=== PATIENT | female | born 1965 | race Caucasian/White ===

== ENCOUNTER 2018-05-14 07:30 | Emergency (ER) | payer OTHER ==
[~2018-05-14] VITALS: Wt 75.7 kg
[~2018-05-14 07:30] MED LIST: GLIM4TAB PO; HYDR-3504 PO; IBUP800T48 PO; ISON300T18 PO; LANT3I SC; MECL12.5 PO; OMEP20CA16 PO; RANI300T PO; SITA1TBM7 PO
[2018-05-14 07:33] VITALS: BP 137/70; PULSE 104; RESP 17
[2018-05-14] MEDS ORDERED: NPH10OT RIGHT EAR (07:49)
--- NOTE | 2018-05-14 08:03 | ERD ---
ER Documentation Chief Complaint Chief Complaint FACIAL PAIN, EAR PAIN, HEADACHE HPI 52-year-old female presents the emergency department complaining of facial pain and swelling. Over the last week, patient thought that she had a problem with her tooth. She had pain on the right side of her face that radiated to her right ear. She was evaluated by her doctor and started on Keflex. Despite the use of the Keflex, she continues to have pain in the right ear and the right side of her face. She denies any fevers or chills. She denies any discharge or drainage from the ear. She reports no difficulty hearing. She reports that the pain from her ear occasionally radiates to her head but she has no other specific headache. Concurrent with all these issues, she states that her blood sugars have been over 300 and difficult to control. She has a cough but no sputum production. She reports no shortness of breath. ROS All systems reviewed and are negative except as per history of present illness. Medications Home Meds Active Scripts Neomycin/Polymyxin/Hydrocort* (Cortisporin* Otic) 10 Ml Susp, 4 DROP RIGHT EAR QID for 7 Days, EA Prov:BELKIS BARRETO 05/14/18 Meclizine Hcl* (Meclizine Hcl*) 12.5 Mg Tablet, 12.5 MG PO Q8H PRN for DIZZINESS, #30 TAB Prov:PREET RODAS MD 08/08/15 Reported Medications Hydrocodone Bit-Acetaminophen (Hydrocodone-APAP) 10-325MG Tablet, 1 TAB PO Q4H PRN for PAIN, TAB 09/27/15 Ranitidine Hcl* (Ranitidine Hcl*) 300 Mg Tablet, 300 MG PO HS, #30 TAB 09/27/15 Isoniazid* (Isoniazid*) 300 Mg Tablet, 300 MG PO DAILY, TAB 09/27/15 Insulin Glargine* (Lantus*) 100 Unit/Ml Soln, 100 UNIT SC QHS, #1 VIAL 08/06/15 Insulin Glargine* (Lantus*) 100 Unit/Ml Soln, 100 UNIT SC AC BREAKFAST, #1 VIAL 08/06/15 Ibuprofen* (Motrin*) 800 Mg Tab, 800 MG PO BID, TAB 01/28/15 Glimepiride* (Glimepiride*) 4 Mg Tablet, 4 MG PO WITH BREAKFAST, TAB 01/28/15 Omeprazole* (Omeprazole*) 20 Mg Capsule.dr, 20 MG PO DAILY, CAP 01/28/15 Sitagliptin Phos-Metformin Hcl (Janumet XR) 100-1,000 Mg Tbmp.24hr, 1 TAB PO DAILY, TAB 01/28/15 Allergies Allergies: Coded Allergies: No Known Allergies (Verified Allergy, Mild, 09/27/15) PMhx/Soc History of Surgery: No (ARTEMIO, CTR BILAT, OPA BILAT KNEES, C SECTION) Anesthesia Reaction: No Hx Neurological Disorder: No Hx Respiratory Disorders: No Hx Cardiac Disorders: No Hx Psychiatric Problems: No Hx Miscellaneous Medical Probl: No Hx Alcohol Use: No Hx Substance Use: No Hx Tobacco Use: No FmHx Noncontributory for chief complaint Physical Exam Vitals Vital Signs Date Temp Pulse Resp B/P (MAP) Pulse Ox O2 O2 Flow FiO2 Time Delivery Rate 05/14/18 99.2 104 17 137/70 98 07:33 (92) Physical Exam GENERAL: Obese female in no acute distress HEENT: Pupils equal, round, and reactive to light. EOMI. There is no scleral icterus. Dentition is poor but there is no gingival abscess or facial cellulitis noted. Patient has a right otitis externa with no obvious drainage. Left tympanic membrane and external ear canal are normal NECK: C-spine is soft and supple, there is no meningismus. There is no cervical lymphadenopathy. LUNGS: Clear to auscultation bilaterally. There are no rales, wheezes or rhonchi. HEART: Regular rate and rhythm, no murmurs, clicks, rubs or gallops. ABDOMEN: Soft, non-tender, non-distended. There are bowel sounds in all four quadrants. No rebound or guarding. EXTREMITIES: There is no peripheral cyanosis or edema. No focal swelling or erythema. NEURO: The patient moves all four extremities with 5/5 strength. Cranial nerves II - XII are intact. Normal gait. Alert and oriented SKIN: There is no apparent rash or petechiae. HEME/LYMPHATIC: There is no evidence of excessive bruising or lymphedema. PSYCHIATRIC: The patient does not appear anxious or depressed. Procedures/MDM Patient was taken to a room, seen and examined Medical decision makin-year-old female with a history of diabetes that is poorly controlled presents the emergency department with what appears to be an otitis externa. She is already on oral anti-biotics which we will continue and I will place her on topical medications as well. The oral antibiotics seem to be appropriate given her history of diabetes that is poorly controlled and the ongoing symptoms that she is having. From the standpoint of her cough, she has no evidence of pneumonia, hypoxemia or respiratory distress. She appears to be clinically nontoxic and appropriate for outpatient care. Departure Diagnosis: Primary Impression: Otitis externa Additional Impression: Hyperglycemia Condition: Stable Patient Instructions: Hyperglycemia (High Blood Sugar), External Ear Infection (Adult) Additional Instructions: Please continue the antibiotics. Please see your doctor if not better in the next 3 days BELKIS BARRETO May 14, 2018 08:03
== END 2018-05-14 07:57 | disposition home or self-care (01) ==
LOC: FTE 07:30
DX: H60.91 Unspecified otitis externa, right ear (principal); E11.65 Type 2 diabetes mellitus with hyperglycemia; Z79.4 Long term (current) use of insulin
CPT/HCPCS: 99282

== ENCOUNTER 2018-07-16 17:52 | Emergency (ER) | payer OTHER ==
[~2018-07-16] VITALS: Ht 162.6 cm; Wt 80.5 kg
[~2018-07-16 17:52] MED LIST changes: +NPH10OT RIGHT EAR
[2018-07-16 18:07] VITALS: Ht 162.6 cm; Wt 80.5 kg
[2018-07-16] MEDS ORDERED: CEPH-443 PO (21:09)
[2018-07-16] MEDS ORDERED: NAPR-985 PO (21:09)
[2018-07-16 21:22] VITALS: BP 146/69; PULSE 88; RESP 18
[2018-07-16] MEDS ORDERED: DIPHTH/TET/ACEL PERTUSS (ADULT) 0.5 ML VIAL IM* ONE (21:30)
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
== END 2018-07-16 21:23 | disposition home or self-care (01) ==
LOC: FTE 17:52
DX: S61.432A Puncture wound without foreign body of left hand, initial encounter (principal); E11.9 Type 2 diabetes mellitus without complications; W26.0XXA Contact with knife, initial encounter; Y92.9 Unspecified place or not applicable; Z23 Encounter for immunization; Z79.4 Long term (current) use of insulin
CPT/HCPCS: 73130; 90471; 90715; Z7502

== ENCOUNTER 2018-10-16 07:13 | Day surgery (SDC) | payer OTHER ==
[~2018-10-16] VITALS: Ht 152.4 cm; Wt 79.3 kg
[~2018-10-16 07:13] MED LIST changes: +CEPH-443 PO; +NAPR-985 PO
[2018-10-16 07:34] VITALS: Ht 152.4 cm; Wt 79.3 kg
[2018-10-16 08:00] VITALS: BP 121/72; PULSE 82; RESP 16
[2018-10-16] MEDS ORDERED: DEXTROSE 50% 50 ML SYRINGE ONE (08:33)
[2018-10-16] MEDS ORDERED: PROPOFOL 40 ML ONE (08:33)
--- NOTE | 2018-10-16 08:37 | PREAC ---
Date/Time of Note Date/Time of Note DATE: 10/16/18 TIME: 08:35 Anesthesia Eval and Record Evaluation Time Pre-Procedure Interview DATE: 10/16/18 TIME: 08:35 Age 53 Sex female NPO: 8 hrs Preoperative diagnosis Abdominal Pain, Screening Planned procedure EGD & Colonoscopy Past Medical History Past Medical History: Includes Cardio: Dyslipidemia Endo: Diabetes Musculoskeletal: Osteoarthritis GI: Obesity Surgery & Anesthesia Issues No known issue Meds Anticoagulation: No Beta Shelley within 24 hr: No Reason Beta Shelley not given: Pt. not on B-Shelley Active Scripts Naproxen* (Naprosyn*) 500 Mg Tablet, 500 MG PO BID PRN for PAIN AND/OR INFLAMMATION, #30 TAB Prov:ALIN STANLEY V INDUSTRIAL TWISTING MACHINE OPERATOR 07/16/18 Reported Medications Insulin Glargine* (Lantus*) 100 Unit/Ml Soln, 100 UNIT SC QHS, #1 VIAL 08/06/15 Insulin Glargine* (Lantus*) 100 Unit/Ml Soln, 100 UNIT SC AC BREAKFAST, #1 VIAL 08/06/15 Ibuprofen* (Motrin*) 800 Mg Tab, 800 MG PO BID, TAB 01/28/15 Discontinued Reported Medications Hydrocodone Bit-Acetaminophen (Hydrocodone-APAP) 10-325MG Tablet, 1 TAB PO Q4H PRN for PAIN, TAB 09/27/15 Ranitidine Hcl* (Ranitidine Hcl*) 300 Mg Tablet, 300 MG PO HS, #30 TAB 09/27/15 Isoniazid* (Isoniazid*) 300 Mg Tablet, 300 MG PO DAILY, TAB 09/27/15 Glimepiride* (Glimepiride*) 4 Mg Tablet, 4 MG PO WITH BREAKFAST, TAB 01/28/15 Omeprazole* (Omeprazole*) 20 Mg Capsule.dr, 20 MG PO DAILY, CAP 01/28/15 Sitagliptin Phos-Metformin Hcl (Janumet XR) 100-1,000 Mg Tbmp.24hr, 1 TAB PO DAILY, TAB 01/28/15 Discontinued Scripts Cephalexin* (Keflex*) 500 Mg Capsule, 500 MG PO Q8 for INFECTION PREVENTION HAND for 7 Days, CAP Prov:ALIN STANLEY V INDUSTRIAL TWISTING MACHINE OPERATOR 07/16/18 Neomycin/Polymyxin/Hydrocort* (Cortisporin* Otic) 10 Ml Susp, 4 DROP RIGHT EAR QID for 7 Days, EA Prov:ESTEVAN,BELKIS 05/14/18 Meclizine Hcl* (Meclizine Hcl*) 12.5 Mg Tablet, 12.5 MG PO Q8H PRN for DIZZINESS, #30 TAB Prov:PREET RODAS MD 08/08/15 Meds reviewed: Yes Allergies Coded Allergies: No Known Allergies (Verified Allergy, Mild, 09/27/15) Allergies Reviewed: Yes Labs/Studies Labs Reviewed: Reviewed by anesthesiologist test: N/A (s/p Hysterectomy) Studies: ECG (n/a), CXR (n/a) Pre-procedure Exam Last vitals Vital Signs Date Temp Pulse Resp B/P (MAP) Pulse Ox O2 O2 Flow FiO2 Time Delivery Rate 10/16/18 82 16 121/72 97 Room Air 08:00 (88) Airway: Adequate mouth opening, Adequate thyromental dist Mallampati: Mallampati II Teeth: Normal Lung: Normal Heart: Normal ASA Physical Status ASA physical status: 3 Emergency: None Planned Anesthetic General/MAC: MAC Planned Pain Management Parenteral pain med Pre-operative Attestations Prior to commencing anesthesia and surgery, the patient was re-evaluated, there was verification of: *The patient's identity *The results of appropriate recent lab work and preoperative vital signs *The above evaluation not changing prior to induction *Anesthetic plan, risk benefits, alternative and complications discussed with patient/family; questions answered; patient/family understands, accepts and wishes to proceed. JUAN SANTAMARIA MD Oct 16, 2018 08:37
[2018-10-16] MEDS ORDERED: LABETALOL HCL 20MG INJ IV PRN (09:00)
[2018-10-16] MEDS ORDERED: HYDROmorphONE 1 MG/5 ML IV SYRINGE IV PRN ×2 (09:00)
[2018-10-16] MEDS ORDERED: METOCLOPRAMIDE 10 MG INJ IV PRN (09:00)
[2018-10-16] MEDS ORDERED: EPHEDrine 25 MG/5 ML SYG IV PRN (09:00)
[2018-10-16] MEDS ORDERED: ONDANSETRON 4 MG INJ IV PRN (09:00)
[2018-10-16] MEDS ORDERED: FENTAnyl 50 MCG/ML VIAL IV PRN ×2 (09:00)
[2018-10-16 09:24] VITALS: BP 94/58; RESP 17
--- NOTE | 2018-10-16 09:31 | PAC ---
Date/Time of Note Date/Time of Note DATE: 10/16/18 TIME: 09:30 Post-Anesthesia Notes Post-Anesthesia Note Last documented vital signs Vital Signs Date Temp Pulse Resp B/P (MAP) Pulse Ox O2 O2 Flow FiO2 Time Delivery Rate 10/16/18 98.1 82 16 121/72 97 Room Air 09:30 (88) Activity: WNL Respiratory function: WNL Cardiovascular function: WNL Mental status: Baseline Pain reasonably controlled: Yes Hydration appropriate: Yes Nausea/Vomiting absent: Yes JUAN SANTAMARIA MD Oct 16, 2018 09:31
[2018-10-16 09:58] VITALS: BP 129/69; PULSE 77; RESP 20
== END 2018-10-16 10:43 | disposition home or self-care (01) ==
LOC: GIL 07:13
PROVIDERS: ATTEND Internal Medicine Gastroenterology
DX: Z12.11 Encounter for screening for malignant neoplasm of colon (principal); K64.8 Other hemorrhoids; K29.60 Other gastritis without bleeding; E11.9 Type 2 diabetes mellitus without complications; E78.5 Hyperlipidemia, unspecified; Z79.4 Long term (current) use of insulin
CPT/HCPCS: 43239; 45378; 82962; 88305; Z7610